=== PATIENT | female | born 1960 | race Caucasian/White ===

== ENCOUNTER 2021-05-03 18:24 | Emergency (ER) | payer OTHER ==
[~2021-05-03] VITALS: Ht 170.2 cm; Wt 63.0 kg
[2021-05-03] MEDS ORDERED: LORTAB5 PO (20:39)
[2021-05-03] MEDS ORDERED: MOTRIN800 MG PO (20:39)
[2021-05-03 21:00] VITALS: BP 116/60
== END 2021-05-03 21:00 | disposition home or self-care (01) | DRG 563 ==
LOC: ED 18:24
PROC: 2W3AXYZ Immobilization of Right Upper Arm using Other Device (ICD-10-PCS; principal; 2021-05-03)
DX: S42.291A Other displaced fracture of upper end of right humerus, initial encounter for closed fracture (principal); F17.200 Nicotine dependence, unspecified, uncomplicated; V80.010A Animal-rider injured by fall from or being thrown from horse in noncollision accident, initial encounter; Y93.52 Activity, horseback riding